=== PATIENT | male | born 1975 ===

== ENCOUNTER 2022-05-19 21:11 | Emergency (ER) | payer OTHER ==
[2022-05-19 21:59] LABS: HEMOGLOBIN 14.3 gm/dl (14.0-17.5); RED BLOOD COUNT 4.74 M/UL (4.20-5.50); WHITE BLOOD COUNT 8.7 K/UL (4.5-11.0)
[2022-05-19 22:24] LABS: BUN/CREATININE RATIO 14 (0-10)
== END 2022-05-20 03:15 | disposition home or self-care (01) ==
LOC: ER1 21:11
PROVIDERS: Emergency Medicine
DX: R04.0 Epistaxis (principal); R73.9 Hyperglycemia, unspecified; Z81.1 Family history of alcohol abuse and dependence
CPT/HCPCS: 80053; 85025; 85610; 85730; 93005; 99284